=== PATIENT | male | born 1985 | race Caucasian/White ===

== ENCOUNTER 2019-11-09 10:40 | Emergency (ER) | payer BC ==
[2019-11-09] MEDS ORDERED: methylPREDNISolone Sodium Succinate 125 MG/2 ML SDV IM ONE (11:17)
--- NOTE | 2019-11-09 11:24 | EDM.PDOC ---
<GurmeetLetyy M - Last Filed: 11/09/19 11:31> ED HPI GENERAL MEDICAL PROBLEM - General Chief Complaint: Bite:Animal, Insect Stated Complaint: BEE STINGS Time Seen by Provider: 11/09/19 11:18 Source of Information: Reports: Patient, RN, RN Notes Reviewed, Significant Other History Limitations: Reports: No Limitations - History of Present Illness INITIAL COMMENTS - FREE TEXT/NARRATIVE: Pt presents to ER with spouse with CC of 2 bee stings today to back of head and neck/shoulder on right. Reports history of epi pen use. Does not have current RX. Denies airway compromise. Denies pain. Here as he feels like "swelling in face" and some redness to face and BL forearms. 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 Onset Date: 11/08/19 Duration: Day(s):, Getting Worse Location: Reports: Head (1 bee sting to back of head and 1 bee sting to R shoulder/neck), Neck, Back Severity: Moderate - Related Data Allergies Allergy/AdvReac Type Severity Reaction Status Date / Time Penicillins Allergy Hives Verified 09/02/15 11:21 venom-honey bee Allergy Anaphylactic Verified 11/09/19 11:01 Shock Past Medical History - Past Health History Medical/Surgical History: Denies Medical/Surgical History Social & Family History - Tobacco Use Smoking Status *Q: Never Smoker - Caffeine Use Caffeine Use: Reports: Coffee - Recreational Drug Use Recreational Drug Use: No ED ROS GENERAL - Review of Systems Review Of Systems: See Below Constitutional: Reports: No Symptoms HEENT: Reports: No Symptoms Respiratory: Reports: No Symptoms Cardiovascular: Reports: No Symptoms Endocrine: Reports: No Symptoms GI/Abdominal: Reports: No Symptoms : Reports: No Symptoms Musculoskeletal: Reports: No Symptoms Skin: Reports: No Symptoms Neurological: Reports: No Symptoms Psychiatric: Reports: No Symptoms Hematologic/Lymphatic: Reports: No Symptoms Immunologic: Reports: Anaphylaxis (2 bee stings yesterday. Hx of anaphylaxis ) ED EXAM, ANIMAL BITE - Physical Exam Exam: See Below Exam Limited By: No Limitations General Appearance: Alert, WD/WN, No Apparent Distress Throat/Mouth: Normal Inspection, Normal Lips, Normal Teeth, Normal Gums, Normal Oropharynx, Normal Voice, No Airway Compromise Head: Normocephalic Respiratory/Chest: No Respiratory Distress, Lungs Clear, Normal Breath Sounds, No Accessory Muscle Use Cardiovascular: Regular Rate, Rhythm (Male) Exam: Deferred Rectal (Males) Exam: Deferred Neurological: Alert, Oriented, Normal Cognition Skin Exam: Warm/Dry, Other (Face/neck red) Course - Re-Assessments/Exams Free Text/Narrative Re-Assessment/Exam: 11/09/19 11:21 Examine pt. Meds to follow 125 mg IM Solu medrol given 50 mg Benadryl PO given. 11/09/19 11:29 Departure - Departure Time of Disposition: 11:24 Disposition: Home, Self-Care 01 Condition: Good Clinical Impression: Bee sting reaction Qualifiers: Encounter type: initial encounter Injury intent: accidental or unintentional Qualified Code(s): T63.441A - Toxic effect of venom of bees, accidental (unintentional), initial encounter - Discharge Information *PRESCRIPTION DRUG MONITORING PROGRAM REVIEWED*: Not Applicable *COPY OF PRESCRIPTION DRUG MONITORING REPORT IN PATIENT BEAU: Not Applicable Instructions: Bee, Wasp, or Hornet Sting, Adult Referrals: PCP,None [Primary Care Provider] - Forms: ED Department Discharge Additional Instructions: Please take Medrol dose pack as indicated by prescriber. Prescription for Epi pen has been prescribed. May use Benadryl at home 25 mg by mouth Q6 hours. May use the non drowsy formula. Rest and take it easy today. You may feel tired due to the Benadryl given in ER. Sepsis Event Note (ED) - Evaluation Sepsis Screening Result: No Definite Risk - Problem List & Annotations (1) Bee sting reaction SNOMED Code(s): 256976944, 193725308 Code(s): T63.441A - TOXIC EFFECT OF VENOM OF BEES, ACCIDENTAL, INIT Status: Acute Qualifiers: Encounter type: initial encounter Injury intent: accidental or unintentional Qualified Code(s): T63.441A - Toxic effect of venom of bees, accidental (unintentional), initial encounter - Problem List Review Problem List Initiated/Reviewed/Updated: Yes - Assessment/Plan Plan: Please take Medrol dose pack as indicated by prescriber. Prescription for Epi pen has been prescribed. May use Benadryl at home 25 mg by mouth Q6 hours. May use the non drowsy formula. Rest and take it easy today. You may feel tired due to the Benadryl given in ER. <Srinivasan Gaines - Last Filed: 11/09/19 16:00> Course - Vital Signs Last Recorded V/S: Last Vital Signs Temp 98.8 F 11/09/19 11:00 Pulse 64 11/09/19 11:43 Resp 16 11/09/19 11:43 BP 130/83 11/09/19 11:43 Pulse Ox 98 11/09/19 11:43 - Orders/Labs/Meds Meds: Medications Discontinued Medications Generic Name Dose Route Start Last Admin Trade Name Torsten PRN Reason Stop Dose Admin Diphenhydramine HCl 50 mg 11/09/19 11:26 11/09/19 11:30 Benadryl PO 11/09/19 11:27 50 mg ONETIME ONE Administration Methylprednisolone Sodium Succinate 125 mg 11/09/19 11:17 11/09/19 11:22 Solu-Medrol IM 11/09/19 11:18 125 mg ONETIME ONE Administration - Re-Assessments/Exams Free Text/Narrative Re-Assessment/Exam: 11/09/19 15:59 Patient did have a brief vasovagal episode after the Solu-Medrol injection and oral Benadryl but it resolved after 10 to 15 minutes. Departure - Departure Time of Disposition: 12:20 Sepsis Event Note (ED) - Focused Exam Vital Signs: Vital Signs Temp Pulse Resp BP Pulse Ox 11/09/19 11:43 64 16 130/83 98 11/09/19 11:35 44 L 16 109/74 100 11/09/19 11:00 98.8 F 90 20 138/83 95 11/09/19 10:58 98.8 F 90 20 138/83 95 Attestation - Student - Attestation Statement Attestation Statement: I personally performed or re-performed the physical examination and medical decision making. I have verified all student documentation or findings, including history, physical exam and/or medical decision making.
[2019-11-09] MEDS ORDERED: diphenhydrAMINE 25 MG Cap PO ONE (11:26)
[2019-11-09 11:43] VITALS: BP 130/83; PULSE 64
== END 2019-11-09 12:20 | disposition home or self-care (01) ==
LOC: JP.ED 10:40
DX: T63.441A Toxic effect of venom of bees, accidental (unintentional), initial encounter (principal); Z88.0 Allergy status to penicillin
CPT/HCPCS: 96372; 99282; A9270; J2930; 99283